=== PATIENT | female | born 1965 | race Caucasian/White ===

== ENCOUNTER 2025-03-20 08:02 | Emergency (ER) | payer MEDICARE, MEDICAID, SELFPAY ==
[2025-03-20] VITALS (7 sets, daily range): BP systolic 134–141; BP diastolic 75–80; PULSE 98–108; RESP 17–24; TEMP 37.1; O2SAT 97–100; BMI 32.8
--- NOTE | 2025-03-20 08:44 | ED.VIS.CHEST ---
HPI History of Present Illness Chief Complaint: Chest Pain Informant: patient Onset/Context/Timing Onset: Today Activity at onset: sudden and sleep Timing: Continuous Quality: Positive for Burning Location: - (Upper chest and neck, bilateral upper extremities, left worse than right) Worsened By: Coughing Relieved By: Nothing Associated Symptoms: Positive for Nausea, Vomiting, Diaphoresis, Dyspnea, Cough, Lightheadedness and Acid Reflux; Negative for Fever or Palpitations Narrative Narrative: Patient presents with chest pain that began this morning. Patient states it woke her up out of her sleep. Patient states it began rather suddenly. Patient states it is constant. Patient describes it as burning. Patient states it is mainly over the upper chest but radiates into both arms. Patient states it is worse in her left arm. Patient states her pain is worse with coughing. Patient states nothing makes it better. Patient admits to an episode of nausea and vomiting. Patient also admits to some shortness of breath and diaphoresis. Patient also admits to some lightheadedness. CVD Risk Factors: Positive for Diabetes, Hypercholesterolemia and Family History 1' </=55; Negative for Hypertension or Smoking PE Risk Factors: Positive for Recent Travel/Surgery; Negative for Recent Immobilization, Prior DVT or PE or Cancer [facility] Medical History (Updated 03/20/25 @ 12:[address] Julio Claire DO) Parkinson's disease Hypercholesteremia Diabetes Allergy/AdvReac Type Severity Reaction Status Date / Time amoxicillin (From Augmentin) AdvReac Intermediate Nausea/Vom/ Verified 03/20/25 08:04 Diarrhea clavulanic acid (From AdvReac Intermediate Nausea/Vom/ Verified 03/20/25 08:04 Augmentin) Diarrhea desloratadine (From Clarinex) AdvReac Intermediate Rash Verified 03/20/25 08:04 Surgical History History of back surgery Hx of thyroidectomy Hx of cholecystectomy Hx of brain surgery Social History Smoking Status: Never smoker ROS ROS ED Constitutional Constitutional ED: Denies chills or fever(s) Eyes Eyes: Reports blurry vision and change in vision ENT ENT ED: Reports rhinorrhea and sore throat Cardiovascular Cardiovascular: Reports chest pain; Denies palpitations Respiratory/Chest Respiratory/Chest: Reports cough and dyspnea Gastrointestinal Gastrointestinal: Reports nausea and vomiting Genitourinary Genitourinary ED: Denies dysuria or hematuria Musculoskeletal Musculoskeletal: Reports neck pain; Denies back pain Integumentary Denies abscess or rash Neurologic Neurologic: Reports headache(s); Denies weakness Allergic/Immunologic Allergic/Immunologic ED: Denies mouth swelling or urticaria EXAM Physical Exam Const Vital Signs: 03/20/25 08:05 03/20/25 08:09 03/20/25 08:09 Temperature 98.7 F Temperature Source Oral Pulse Rate 100 Respiratory Rate 17 Respiratory Effort Normal Non-Labored Normal Non-Labored Respiratory Depth Normal Respiratory Pattern Normal Blood Pressure 141/75 H Blood Pressure Mean 97 Pulse Ox 97 Oxygen Delivery Method Room Air 03/20/25 08:51 03/20/25 09:03 03/20/25 10:31 Temperature Temperature Source Pulse Rate 98 108 H Respiratory Rate 17 24 H Respiratory Effort Respiratory Depth Respiratory Pattern Blood Pressure Blood Pressure Mean Pulse Ox 99 100 Oxygen Delivery Method Room Air 03/20/25 10:45 03/20/25 11:00 03/20/25 12:00 Temperature Temperature Source Pulse Rate 100 98 102 H Respiratory Rate 19 H 17 18 Respiratory Effort Respiratory Depth Respiratory Pattern Blood Pressure 134/80 H 140/80 H Blood Pressure Mean 95 100 Pulse Ox 100 97 98 Oxygen Delivery Method Room Air Positive well nourished and well developed Constitutional Narrative: BMI is 32.8. General Appearance ED: well developed and NAD HEENT Reports moist mucous membranes Neck supple and no JVD Chest Wall Chest Narrative: There is reproducible tenderness over the lower sternum. There is no bony crepitance or step-off. There is no subcutaneous emphysema palpated. Chest: tenderness sternum Resp normal respiratory effort and clear to auscultation bilaterally Cardio regular rate and regular rhythm GI soft to palpation, non-tender and non-distended Extremity normal to inspection General Extremety ED: Negative for edema or tenderness General Extremity: Negative for edema Neuro oriented x3, CN's II-XII intact bilaterally and no sensory deficits noted Sensorium / Orientation: awake and alert Motor Exam: strength 5/5 throughout Psych mental status grossly normal Heart Score History: Slightly/Non-Suspicious ECG: Normal Age: >45 - <65 years Risk Factors: >/= 3 Risk Factors or History of CAD Troponin: </= Normal Limit Score: 3 MDM MDM MDM Narrative Medical decision making narrative: Differential diagnosis includes cardiac dysrhythmia, cardiac ischemia, pneumonia, bronchitis, pulmonary embolism, gastroesophageal reflux disease, musculoskeletal pain, and anxiety. EKG will be obtained to assess for cardiac dysrhythmia and cardiac ischemia. CBC will be obtained to assess for leukocytosis and anemia. Basic metabolic profile will be obtained to assess for electrolyte abnormality and renal function. High-sensitivity troponin will be obtained to assess for cardiac ischemia. 2-hour repeat high-sensitivity troponin will be obtained to assess for ongoing cardiac ischemia. D-dimer will be obtained to assess for pulmonary embolism. If the D-dimer is negative, chest x-ray will be obtained to assess for pneumonia or bronchitis. If the D-dimer is positive, CTA of the chest will be obtained to assess for pulmonary embolism, pneumonia, and bronchitis. Lab Data Attestation: I reviewed the patient's lab results. Lab results narrative: CBC was reviewed and was within normal limits. Basic metabolic profile was reviewed and showed a mildly elevated glucose at 0.58. The remainder is within normal limits. D-dimer was reviewed and was normal at 0.48. Initial high-sensitivity troponin was reviewed and was normal at 9. 2-hour repeat high-sensitivity troponin was also normal at 13. Labs: Laboratory Results - last 24 hr 03/20/25 03/20/25 09:12 11:00 WBC 5.9 RBC 4.24 Hgb 12.2 Hct 36.0 L MCV 84.9 MCH 28.8 MCHC 33.9 RDW Std Deviation 39.1 RDW Coeff of Paulina 12.8 Plt Count 153 MPV 8.5 Immature Gran % (Auto) 0.700 Neut % (Auto) 80.7 H Lymph % (Auto) 6.4 L Wagoner % (Auto) 9.0 Eos % (Auto) 2.5 Baso % (Auto) 0.7 Absolute Neuts (auto) 4.8 Absolute Lymphs (auto) 0.38 L Nucleated RBC % 0 D-Dimer Quant (PE/DVT) 0.48 Sodium 139 Potassium 3.6 Chloride 100 Carbon Dioxide 25.1 Anion Gap 14 BUN 10 Creatinine 0.65 L Estim Creat Clear Calc 112.65 Est GFR (MDRD) Non-Af 101 BUN/Creatinine Ratio 15.1 Glucose 158 H Calcium 9.0 Troponin T High Sens 9 Troponin T Hi Sens 2 Hr 13 Radiography Chest X-Ray - ED: 2 View, Read by ED Physician, Read by Radiologist and No Acute Disease Diagnostic Testing: Clinical Impression(s) from Imaging Studies Chest X-Ray 03/20/25 10:30 IMPRESSION: No acute cardiopulmonary process. Reading Location: [facility] PA and lateral chest x-ray was obtained. There are 2 views. On my independent interpretation, lung ribera are clear. There is normal cardiac silhouette. Bony thorax is normal. There is no acute process noted. Radiologist also interpreted the x-ray and agrees. EKG Initial EKG: Attestation: I personally reviewed and interpreted this EKG as follows: Interpretation: Sinus Rhythm (100) and No Acute Injury Pattern Comments: EKG was obtained. On my independent interpretation, it showed a normal sinus rhythm with a rate of 100. MN interval, QRS interval, and QTc intervals were all normal. Stopover was normal. There are no acute ST or T wave changes. Prior EKG tracings: not available for review Prior: No Prior Treatment and Re-Evaluation :: Patient was given IV fluids, Imitrex, and aspirin. Patient was feeling better on reevaluation. Patient was advised of her findings. Patient has a HEART score of 3. Patient was advised that this is a low risk for acute cardiac event. Patient was instructed to follow-up with her primary care physician in 5 to 7 days. Patient was instructed to return if worse in any way. Patient understood and was agreeable with the plan. All questions were answered. Discharge Plan Triage Chief Complaint: Chest Pain Other Complaint: Shortness of Breath ED Provider: Julio Claire Dx/Rx/DC Orders Clinical Impression: Chest pain, Diabetes, Headache, migraine Instructions: ED Chest Pain, Uncertain Cause, ED, Migraine (Classical) Primary Care Provider: Ivette Holt Referrals: Ivette Holt DO [Primary Care Provider, Family Practice] - 5-7 Days Print Language: Armenian Disposition Disposition: Home, Self Care
--- NOTE | 2025-03-20 08:51 | EKG12_ITS ---
Test Reason : CP Blood Pressure : */* mmHG Vent. Rate : 100 BPM Atrial Rate : 100 BPM P-R Int : 162 ms QRS Dur : 84 ms QT Int : 352 ms P-R-T Axes : 46 24 48 degrees QTcB Int : 454 ms Normal sinus rhythm Normal ECG Confirmed by LORRAINE BOUDREAUX, LOS ([id number]), index editor DAGO SANDERSON ([id number]) on 03/21/2025 10:46:05 AM Referred By: Confirmed By: LOS PETERS MD
[2025-03-20 09:17] LABS: Hematocrit 36.0 % (37-47); Hemoglobin 12.2 g/dL (12.0-15.0); Immature Granulocytes Count 0.040 X10^3/uL (0.0-0.0); Mean Corp Hgb Conc 33.9 g/dL (32-36); Mean Corpuscular Volume 84.9 fL (81-99); Mean Platelet Vol. 8.5 fl (6.2-12.0); NRBC Flagged by Analyzer 0 % (0-5); POSITIVE DIFFERENTIAL YES; Platelet Count 153 K/mm3 (150-450); RBC Distribution Width CV 12.8 % (11.6-14.6); RBC Distribution Width SD 39.1 fl (35.1-43.9); Red Blood Count 4.24 M/mm3 (4.2-5.4); White Blood Count 5.9 K/mm3 (4.4-11.0)
[2025-03-20 09:43] LABS: Anion Gap 14 (5-15); BUN 10 mg/dL (4-19); BUN/Creat Ratio 15.1 RATIO (10-20); Calcium,Total 9.0 mg/dL (7.6-11.0); Carbon Dioxide 25.1 mmol/L (21.0-32.0); Chloride 100 mmol/L (98-108); Estimated Creatinine Clearance 112.65 ml/min (50-250); Glucose 158 mg/dL (70-99); Potassium 3.6 mmol/L (3.3-5.1); Troponin T High Sensitivity 9 ng/L (<=14)
[2025-03-20 09:56] LABS: D-Dimer Quantitative (DVT/PE) 0.48 FEU/ug/m (0.27-0.49)
[2025-03-20] MEDS: 0.9% Normal Saline (1000mL) 1,000 ML 999 ML IV (10:09)
--- NOTE | 2025-03-20 10:30 | RAD_ITS ---
PROCEDURE: CHEST PA AND LATERAL 03/20/2025 REASON FOR EXAM: CHEST PAIN TECHNIQUE: Procedure Code: RADCXR Modality: DX Procedure: CHEST PA AND LATERAL COMPARISON: None FINDINGS: Hardware: None EKG leads Heart: Normal Mediastinum: Normal Lungs: Clear. No pneumothorax or pleural effusion. Bones: The bones are unremarkable. RAD/Chest PA and Lateral IMPRESSION: No acute cardiopulmonary process. Reading Location: [id number]
[2025-03-20 11:47] LABS: Troponin T High Sens 2 HR 13 ng/L (<=14)
== END 2025-03-20 12:43 | disposition home or self-care (01) ==
PROVIDERS: Emergency Provider Emergency Medicine; PCP Family Medicine; Visit Provider Emergency Medicine
DX: R07.89 Other chest pain (principal); G20.A1 Parkinson's disease without dyskinesia, without mention of fluctuations; E11.9 Type 2 diabetes mellitus without complications; G43.009 Migraine without aura, not intractable, without status migrainosus; E78.00 Pure hypercholesterolemia, unspecified; Z90.49 Acquired absence of other specified parts of digestive tract
CPT/HCPCS: 71046; 80048; 84484; 85025; 85379; 93005; 96360; 96361; 96372; 99285; A4216; J3030